=== PATIENT | female | born 1950 | race Caucasian/White ===

== ENCOUNTER → 2016-07-10 | Outpatient (REF) | payer BC | END | disposition home or self-care (01) | LOC: M SFHCWAGY 12:38 | PROVIDERS: ATTEND Nurse Practitioner Family | DX: Z12.4 Encounter for screening for malignant neoplasm of cervix (principal); N95.2 Postmenopausal atrophic vaginitis ==

== ENCOUNTER → 2017-08-23 | Outpatient (REF) | payer BC ==
[2017-08-28 14:13] LABS: HPV HYBRID CAPTURE II Negative (Negative)
== END ==
LOC: M SFHCWAGY 11:52
DX: Z01.419 Encounter for gynecological examination (general) (routine) without abnormal findings (principal); Z11.51 Encounter for screening for human papillomavirus (HPV)
CPT/HCPCS: G0123

== ENCOUNTER 2019-06-21 19:41 | Observation (INO) | payer BC, MEDICARE ==
[~2019-06-21] VITALS: Ht 162.6 cm; Wt 53.5 kg
[2019-06-21] MEDS ORDERED: COZA50TA PO (19:49)
[2019-06-21] MEDS ORDERED: LIPI10TA PO (19:49)
[2019-06-21] MEDS ORDERED: CLAR5TAB PO (19:49)
[2019-06-21] MEDS ORDERED: MEDR1TAB PO (19:50)
[2019-06-21] MEDS ORDERED: ACETAMINOPHEN 500 MG TAB PO ONE (20:15)
[2019-06-21] MEDS ORDERED: methylPREDNISolone INJ 125 MG/2 ML VIAL (J2930) IM ONE (20:15)
[2019-06-21] MEDS ORDERED: LIDOCAINE 5% (LIDODERM) PATCH TD ONE (20:15)
[2019-06-21] MEDS ORDERED: diazePAM 5 MG TAB PO ONE (20:15)
[2019-06-21 20:47] LABS: APPEARANCE, URINE HAZY (CLEAR); BACTERIA, URINE AUTO NEGATIVE (NEGATIVE); BILIRUBIN, URINE AUTO NEGATIVE (NEGATIVE); BLOOD, URINE BLOOD NEGATIVE (NEGATIVE); COLOR, URINE YELLOW (YELLOW); GLUCOSE, URINE (UA) AUTO NEGATIVE (NEGATIVE); KETONE, URINE AUTO NEGATIVE (NEGATIVE); LEUKOCYTE ESTERASE, URINE AUTO NEGATIVE (NEGATIVE); NITRITE, URINE AUTO NEGATIVE (NEGATIVE); PROTEIN, URINE AUTO NEGATIVE (NEGATIVE); RBC, URINE AUTO 0 /HPF (0-3); SPECIFIC GRAVITY URINE AUTO 1.016 (1.002-1.035); SQUAMOUS EPITHELIAL CELL UR AU 1 /HPF (0-6); UROBILINOGEN, URINE AUTO 0.2 mg/dL (0.0-2.0); WBC, URINE AUTO 0 /HPF (0-3)
[2019-06-21] MEDS ORDERED: **NOTE PATIENT COMMENT** MISC XX SCH (21:00)
[2019-06-21] MEDS ORDERED: KETAMINE HCL IV ONE (21:30)
[2019-06-21] MEDS ORDERED: NS IV ONE (21:30)
[2019-06-21] MEDS ORDERED: KETAMINE HCL 200 MG/20 ML VIAL IV ONE (21:45)
[2019-06-21 22:16] LABS: BASO # 0.1 10^3/uL (0.0-0.2); BASO % 0.6 % (0.0-1.0); EOS # 0.1 10^3/uL (0.0-0.5); EOS % 1.5 % (0.0-3.0); HEMATOCRIT 42.1 % (36.0-47.0); HEMOGLOBIN 13.4 g/dl (12.0-15.5); LYMPH # 1.2 10^3/uL (1.5-5.0); LYMPH % 14.2 % (24.0-44.0); MEAN CORPUSCULAR HEMOGLOBIN 28.3 pg (27.0-33.0); MEAN CORPUSCULAR HGB CONC 31.8 g/dl (32.0-36.5); MONO # 0.7 10^3/uL (0.0-0.8); MONO % 7.9 % (0.0-5.0); NEUTROPHILS # 6.4 10^3/uL (1.5-8.5); NEUTROPHILS % 75.2 % (36.0-66.0); PLATELET COUNT, AUTOMATED 216 10^3/uL (150-450); RED BLOOD COUNT 4.73 10^6/uL (4.00-5.40); WHITE BLOOD COUNT 8.5 10^3/uL (4.0-10.0)
[2019-06-21 22:40] LABS: BLOOD UREA NITROGEN 18 MG/DL (7-18); CALCIUM LEVEL 8.2 MG/DL (8.8-10.2); CARBON DIOXIDE LEVEL 28 MEQ/L (21-32); CHLORIDE LEVEL 108 MEQ/L (98-107); CREATININE FOR GFR 0.47 MG/DL (0.55-1.30); GLOMERULAR FILTRATION RATE > 60.0 (>45); GLUCOSE, FASTING 142 MG/DL (70-100); POTASSIUM SERUM 3.8 MEQ/L (3.5-5.1); SODIUM LEVEL 141 MEQ/L (136-145)
[2019-06-21] MEDS ORDERED: ASPI81TA21 PO (22:50)
[2019-06-21] MEDS ORDERED: FOLI1TAB11 PO (22:50)
[2019-06-21] MEDS ORDERED: METH4PACK PO (22:50)
[2019-06-21] MEDS ORDERED: PRIL20TA2 PO (22:50)
[2019-06-21] MEDS ORDERED: MOTR200T44 PO (22:50)
[2019-06-21] MEDS ORDERED: MULTCAP PO (22:50)
[2019-06-21] MEDS ORDERED: VITA500C24 PO (22:50)
[2019-06-21] MEDS ORDERED: GABAPENTIN 100 MG CAP PO ONE (23:15)
[2019-06-21] MEDS ORDERED: IBUPROFEN 800 MG TAB PO PRN (23:15)
[2019-06-22 00:45] VITALS: BP 132/75
--- NOTE | 2019-06-22 01:20 | HPEPDOC ---
General Date of Admission 06/21/2019 Date of Service: Jun 21, 2019 Attending Physician: HORACE MORRIS MD Chief Complaint The patient is a 69-year-old female admitted with a reason for visit of Hip Pain. Source: Patient Exam Limitations: No limitations Timing/Duration: 24 hours, Day(s), Getting worse Associated Symptoms: Other (RLE pain starting around hip into groin and shooting down thigh) History of Present Illness 69 yo W with hypertension, hyperlipidemia and recent history of L leg pain radiating to her groin and down her lateral thigh and diagnosed with L3 radicula r pain in ortho clinic 1 week ago and offered to have a prednisone injection which she declined and was placed on methylpred taper instead that initially yielded much relief but the pain returned over the last 3 days after starting the taper and today the pain was at its worst and 10/10 into the groin, burning and numbness down her lateral thigh, with no trauma history, fever, chills, redness or swelling. In the ED, initial vitals were, BP 209/94, HR 70, 98% on room air, afebrile RR 16. She was given lidocaine patch, tyleno 1g, valium 5mg, solumdrol 125 and ketamine x 2 doses and by the time I saw her she reported that her pain was now 3-4/10 with the only element still present being the pain into her groin. Workup was grossly unremarkable with a Hip XR that showed arthritis with no evidence of fracture or acute trauma, CBC, BMP and UA being normal. She is now being admitted for observation before she can be discharged home to follow up with orthopedics, likely for the prednisone injection that she is now agreeable to. Home Medications Scheduled Ascorbic Acid (Vitamin C) 500 Mg Capsule, 500 MG PO DAILY, (Reported) Aspirin (Aspir-Low) 81 Mg Tablet.dr, 81 MG PO DAILY, (Reported) Atorvastatin Calcium (Lipitor) 10 Mg Tablet, 10 MG PO DAILY, (Reported) Desloratadine (Clarinex) 5 Mg Tablet, 5 MG PO DAILY, (Reported) Folic Acid (Folic Acid) 1 Mg Tablet, 1 MG PO DAILY, (Reported) Losartan Potassium (Cozaar) 50 Mg Tablet, 50 MG PO DAILY, (Reported) Methylprednisolone (Methylprednisolone) 4 Mg Tab.ds.pk, 4 MG PO ASDIRECTED, (Reported) HAS ONE DAY LEFT Multivitamin (Multivitamins) 1 Each Capsule, 1 CAP PO DAILY, (Reported) Omeprazole Magnesium (Prilosec Otc) 20 Mg Tablet.dr, 20 MG PO DAILY, (Reported) Scheduled PRN Ibuprofen (Motrin Ib) 200 Mg Tablet, 800 MG PO Q6H PRN for PAIN, (Reported) Allergies Coded Allergies: No Known Allergies (Unverified , 06/21/19) Past Medical History Medical History HTN HLD L3 radiculopathy OA Surgical History none Family History Significant Family History: No pertinent family hx Social History * Smoker: Denies Alcohol: Denies Recent Travel/Sick Contacts: Reports: Recent travel Psychosocial History: No pertinent psych hx A-FIB/CHADSVASC A-FIB History Current/History of A-Fib/PAF?: No Current PO Anticoag Therapy: No Age/Risk Factor Scoring CHADSVASC: CHADSVASC Response (Comments) Value Age Risk Factor Age 65-74 years old 1 Gender Risk Factor Female 1 Hx of CHF No 0 Hx of HTN Yes 1 Hx of Stroke/TIA/or VTE No 0 Hx of Diabetes No 0 Hx of Vascular Disease No 0 Total 3 Treatment Treatment ordered: NONE Reason Anticoagulant not given: Not indicated/[id number] Review of Systems Constitutional: Denies: Chills, Fever, Night Sweats Eyes: Denies: Pain, Vision change ENT: Denies: Head Aches, Ear Pain, Dysphagia Skin: Denies: Rash, Lesions, Breakdown Pulmonary: Denies: Dyspnea, Cough Cardiovascular: Denies: Chest Pain, Palpitations, Orthopnea, Paroxysmal Noc. Dyspnea, Lt Headedness Gastrointestinal: Denies: Nausea, Vomiting, Abdominal Pain, Diarrhea Genitourinary: Denies: Dysuria, Frequency, Incontinence, Retention Hematologic: Denies: Bruising, Bleeding Excessively Endocrine: Denies: Polydipsia, Polyphagia, Polyuria, Heat Intolerance, Cold Intolerance, Other Endocrine Sx Musculoskeletal: Reports: Leg Pain (L posterior hip wrapping to the front into the groin and down her thigh, shooting, burning, numbness) Neurological: Denies: Weakness, Numbness, Change in speech, Confusion Psych: Reports: Mood Normal; Denies: Depression, Memory Issues Physical Examination General Exam: Positive: Alert, No Acute Distress Eye Exam: Positive: PERRLA, Conjunctiva & lids normal, EOMI; Negative: Sclera icteric Neck Exam: Positive: Supple; Negative: JVD, thyromegaly Chest Exam: Positive: Clear to auscultation, Normal air movement Heart Exam: Positive: Rate Normal, Regular Rhythm, Normal S1, Normal S2; Negative: Murmurs, Rubs Telemetry: Positive: No significant arrhythmia Abdomen Exam: Positive: Normal bowel sounds, Soft; Negative: Tenderness, Hepatospenomegaly Extremity Exam: Positive: Normal pulses; Negative: Clubbing, Cyanosis, Edema Skin Exam: Positive: Nl turgor and temperature; Negative: Breakdown, Lesion Neuro Exam: Positive: Normal Speech, Strength at 5/5 X4 ext, Sensation Intact (numbness along L2, L3 distribution of LLE. L leg with pain into groin with abduction at hip and +straight leg raise), Cranial Nerves 3-12 NL Psych Exam: Positive: Mental status NL, Mood NL, Oriented x 3 Vital Signs Vital Signs Date Time Temp Pulse Resp B/P (MAP) Pulse Ox O2 Delivery O2 Flow Rate FiO2 06/21/19 21:19 169/82 (111) 06/21/19 19:41 98.0 70 16 98 Room Air Laboratory Data Labs 24H Laboratory Tests 2 06/21/19 20:28: Urine Color YELLOW, Urine Appearance HAZY, Urine pH 5.0, Urine Specific [place] 1.016, Urine Protein NEGATIVE, Urine Glucose (Auto)(UA) NEGATIVE, Urine Ketones (Auto) NEGATIVE, Urine Blood NEGATIVE, Urine Nitrite NEGATIVE, Urine Bilirubin NEGATIVE, Urine Urobilinogen 0.2, Urine Leukocyte Esterase (Auto) NEGATIVE, Urine WBC (Auto) 0, Urine RBC (Auto) 0, Urine Hyaline Casts (Auto) 0, Urine Bacteria (Auto) NEGATIVE, Urine Squamous Epithelial Cells 1, Urine Sperm (Auto) 06/21/19 22:11: Immature Granulocyte % (Auto) 0.6, Neutrophils (%) (Auto) 75.2H, Lymphocytes (%) (Auto) 14.2L, Monocytes (%) (Auto) 7.9H, Eosinophils (%) (Auto) 1.5, Basophils (%) (Auto) 0.6, Neutrophils # (Auto) 6.4, Lymphocytes # (Auto) 1.2L, Monocytes # (Auto) 0.7, Eosinophils # (Auto) 0.1, Basophils # (Auto) 0.1, Nucleated Red Blood Cells % (auto) 0.0, Anion Gap 5L, Glomerular Filtration Rate > 60.0, Calcium Level 8.2L CBC/BMP Laboratory Tests 06/21/19 22:11 Assessment/Plan 69 yo W with hypertension, hyperlipidemia and recent history of L leg pain radiating to her groin and down her lateral thigh and diagnosed with L3 radicular pain in ortho clinic 1 week ago and offered to have a prednisone injection which she declined and was placed on methylpred taper instead that initially yielded much relief but the pain returned over the last 3 days after starting the taper with no trauma history, fever, chills, redness or swelling who is now admitted for radicular pain management with eventual plan to return to ortho clinic for prednisone injection. LLE radiculopathy: No recent trauma history, no fracture on XR, no redness, swelling, fever, chills, with FROM on exam with reproducible radicular pain. -s/p lidopatch, valium and ketamine in the ED -s/p methylpred 125mg IV in the ED, on omeprazole GI ppx -holding home methylpred taper -will give gabapentin 200 -PRN ibuprofen and tylenol -Pain well controlled currently, will monitor -PT, OT consult HTN: -continue home losartan HLD: -continue home lipitor GERD: -omeprazole continue home meds: -multivitamin, folate, Vit C, ASA81 DVT ppx: Lovenox Dispo: obs in [facility] for radicular pain management and PT, OT eval Plan / VTE VTE Prophylaxis Ordered?: Yes HORACE MORRIS MD Jun 22, 2019 00:32
[2019-06-22 06:00] VITALS: BP 129/74
--- NOTE | 2019-06-22 07:27 | REP ---
Lumbar spine five views: There are no comparisons. Vertebral body heights and alignment are normal. There is moderate degenerative disc disease at every lumbar level. There is no spondylolysis or spondylolisthesis. The pedicles are unremarkable. There is mild facet osteoarthritis throughout the lumbar spine. The sacroiliac articulations are unremarkable. Impression: Multilevel degenerative disc disease. Facet osteoarthritis. Electronically Signed by Omar Moses MD 06/22/2019 07:18 A
[2019-06-22] MEDS ORDERED: **NOTE PATIENT COMMENT** MISC XX SCH (08:00)
[2019-06-22 08:13] VITALS: BP 126/76
[2019-06-22] MEDS ORDERED: EXCEDRIN MIGRAINE TABLET PO PRN (08:45)
[2019-06-22] MEDS ORDERED: ATORVASTATIN 10 MG TAB PO SCH (09:00)
[2019-06-22] MEDS ORDERED: ASPIRIN 81 MG ENTERIC TAB PO SCH (09:00)
[2019-06-22] MEDS ORDERED: FOLIC ACID 1 MG TAB PO SCH (09:00)
[2019-06-22] MEDS ORDERED: ASCORBIC ACID 500 MG TAB PO SCH (09:00)
[2019-06-22] MEDS ORDERED: OMEPRAZOLE 20 MG CAP PO SCH (09:00)
[2019-06-22] MEDS ORDERED: LOSARTAN 50 MG TAB PO SCH (09:00)
[2019-06-22] MEDS ORDERED: ENOXAPARIN 40 MG/0.4 ML SYRINGE (J1650) SC SCH (09:00)
[2019-06-22] MEDS ORDERED: MULTIVITAMINS/MINERALS THERAP 1 TAB PO SCH (09:00)
--- NOTE | 2019-06-22 16:53 | DS.PDOC ---
Discharge Summary General Date of Admission Jun 21, 2019 at 19:42 Date of Discharge 06/22/2019 Discharge Summary DISCHARGE DIAGNOSIS: Left lower leg radiculopathy SECONDARY DIAGNOSIS: 1. Hypertension 2. Hyperlipidemia 3. GERD PROCEDURES PERFORMED DURING STAY: None. CONSULTANTS: None HOSPITAL COURSE: While the patient was admitted she was stable on the floors. She said her pain was completely resolved by the time she got to the floor. She received a total of 1 g of Tylenol, Solu-Medrol 125 mg, ketamine 2 doses as well as had a lidocaine patch placed. She was evaluated by PT states that the patient was stable to be discharged home. Recommended the patient that she should follow-up with orthopedic surgery within a week as well as her primary care provider, she was agreeable to this plan. DISCHARGE MEDICATIONS: Please see below. ALLERGIES: Please see below. SUBJECTIVE: Patient seen and examined this morning. She states that her pain is completely resolved since shes been admitted. She has no complaints this morning except a headache and was like to go home if possible. She denies chest pain, shortness, breath, nausea, vomiting, fevers, or chills OBJECTIVE: PHYSICAL EXAMINATION: VITAL SIGNS: Please see below. GENERAL: Pleasant 69 year old sitting up in bed awake alert oriented speaking in complete sentences no acute distress HEENT: Atraumatic, normocephalic, moist mucous membranes, no JVD CARDIOVASCULAR: S1 S2 regular no additional heart sounds appreciated. RESPIRATORY: Clear to auscultation bilaterally. ABDOMINAL: Bowel sounds present abdomen soft and nontender EXTREMITIES: No clubbing, cyanosis, edema. Negative logroll test. No tenderness to palpation of the hip joints or back. No reproducible radiculopathy pain on exam today NEUROLOGICAL: no gross focal deficits appreciated PSYCHOLOGICAL: Appropriate LABORATORY DATA, MICROBIOLOGY: Please see below. IMAGING STUDIES: 06/21/2019 Lumbar spine x-ray Multilevel degenerative disc disease. Facet osteoarthritis. DISPOSITION: Home DISCHARGE CONDITION: Improved and Stable. PROGNOSIS: Fair FOLLOW UP: 1. Follow-up with PCP in 7-10 days. 2. Follow-up with orthopedics in 7-10 days. 3. If symptoms return or worsen please call your PCP or return to the ER. ACTIVITY: As prior to admission DIET: As prior to admission TIME SPENT ON DISCHARGE: 35 minutes Attending attestation: I have independently seen and examined the patient. Vital Signs/I&Os Vital Signs Date Time Temp Pulse Resp B/P (MAP) Pulse Ox O2 Delivery O2 Flow Rate FiO2 06/22/19 08:13 126/76 06/22/19 06:00 98.0 63 18 94 Room Air I&O- Last 24 Hours up to 6 AM 06/22/19 06:00 Intake Total 240 ml Output Total 550 ml Balance -310 ml Laboratory Data Labs 24H Laboratory Tests 2 06/21/19 20:28: Urine Color YELLOW, Urine Appearance HAZY, Urine pH 5.0, Urine Specific [place] 1.016, Urine Protein NEGATIVE, Urine Glucose (Auto)(UA) NEGATIVE, Urine Ketones (Auto) NEGATIVE, Urine Blood NEGATIVE, Urine Nitrite NEGATIVE, Urine Bilirubin NEGATIVE, Urine Urobilinogen 0.2, Urine Leukocyte Esterase (Auto) NEGATIVE, Urine WBC (Auto) 0, Urine RBC (Auto) 0, Urine Hyaline Casts (Auto) 0, Urine Bacteria (Auto) NEGATIVE, Urine Squamous Epithelial Cells 1, Urine Sperm (Auto) 06/21/19 22:11: Immature Granulocyte % (Auto) 0.6, Neutrophils (%) (Auto) 75.2H, Lymphocytes (%) (Auto) 14.2L, Monocytes (%) (Auto) 7.9H, Eosinophils (%) (Auto) 1.5, Basophils (%) (Auto) 0.6, Neutrophils # (Auto) 6.4, Lymphocytes # (Auto) 1.2L, Monocytes # (Auto) 0.7, Eosinophils # (Auto) 0.1, Basophils # (Auto) 0.1, Nucleated Red Bloo d Cells % (auto) 0.0, Anion Gap 5L, Glomerular Filtration Rate > 60.0, Calcium Level 8.2L CBC/BMP Laboratory Tests 06/21/19 22:11 Discharge Medications Scheduled Ascorbic Acid (Vitamin C) 500 Mg Capsule, 500 MG PO DAILY, (Reported) Aspirin (Aspir-Low) 81 Mg Tablet.dr, 81 MG PO DAILY, (Reported) Atorvastatin Calcium (Lipitor) 10 Mg Tablet, 10 MG PO DAILY, (Reported) Desloratadine (Clarinex) 5 Mg Tablet, 5 MG PO DAILY, (Reported) Folic Acid (Folic Acid) 1 Mg Tablet, 1 MG PO DAILY, (Reported) Losartan Potassium (Cozaar) 50 Mg Tablet, 50 MG PO DAILY, (Reported) Multivitamin (Multivitamins) 1 Each Capsule, 1 CAP PO DAILY, (Reported) Omeprazole Magnesium (Prilosec Otc) 20 Mg Tablet.dr, 20 MG PO DAILY, (Reported) Scheduled PRN Ibuprofen (Motrin Ib) 200 Mg Tablet, 800 MG PO Q6H PRN for PAIN, (Reported) Allergies Coded Allergies: No Known Allergies (Unverified , 06/21/19) CARLINE LUNA DO Jun 22, 2019 16:53 VINCENT HAWK MD Jul 13, 2019 18:39
== END 2019-06-22 11:25 | disposition home or self-care (01) ==
LOC: M ED 19:41 → M ED INP 19:42 → UNDOADMOB 23:10 → M ED INP 23:10 → ENRESERV 23:33 → M MS5PR 06-22 00:45
PROVIDERS: ADMIT Internal Medicine; ATTEND Internal Medicine
DX: M54.16 Radiculopathy, lumbar region (principal); M46.96 Unspecified inflammatory spondylopathy, lumbar region; M51.9 Unspecified thoracic, thoracolumbar and lumbosacral intervertebral disc disorder; R51 Headache; I10 Essential (primary) hypertension; E78.5 Hyperlipidemia, unspecified; K21.9 Gastro-esophageal reflux disease without esophagitis; M19.90 Unspecified osteoarthritis, unspecified site; Z79.899 Other long term (current) drug therapy; Z79.82 Long term (current) use of aspirin; Z79.52 Long term (current) use of systemic steroids
CPT/HCPCS: 72110; 80048; 81001; 85025; 96372; 96374; 97161; 97165; 99284; G0378; J1650; J2930

== ENCOUNTER → 2019-07-04 | Outpatient (CLI) | payer MEDICARE, BC ==
[~2019-07-04] MED LIST: ASPI81TA21 PO; CLAR5TAB PO; COZA50TA PO; FOLI1TAB11 PO; LIPI10TA PO; MEDR1TAB PO; METH4PACK PO; MOTR200T44 PO; MULTCAP PO; PRIL20TA2 PO; VITA500C24 PO
--- NOTE | 2019-07-05 20:58 | REPVR ---
PROCEDURE INFORMATION: Exam: MR Lumbar Spine Without Contrast. Exam date and time: 07/04/2019 3:16 PM Age: 69 years old Clinical indication: Pain; Lumbago with sciatica; Right; Additional info: Low back pain TECHNIQUE: Imaging protocol: Multiplanar magnetic resonance images of the lumbar spine without intravenous contrast. COMPARISON: CR Spine. Lumbosacral, complete 06/21/2019 8:39 PM FINDINGS: Vertebrae: . T1 weighted images demonstrate mottled decreased signal throughout the vertebrae, findings which can be seen in association with chronic anemia or other myeloproliferative abnormality. This should be correlated with clinical evaluation. Unremarkable. Normal alignment. Spinal cord: Normal signal. No cord compression. L1-L2: No significant disc disease. No significant spinal canal stenosis. No neural foraminal stenosis. L2-L3: No significant disc disease. No significant spinal canal stenosis. No neural foraminal stenosis. L3-L4: There is a mild degenerative central spinal stenosis at L3-L4 secondary to diffuse annular bulging, thickened ligamentum flavum with mild facet joint arthropathy. No significant foraminal narrowing. No lateral recess stenosis. L4-L5: There is a moderate degenerative central spinal stenosis at L4-L5 secondary to diffuse annular bulging, thickened ligamentum flavum with facet joint arthropathy. Moderate foraminal narrowing on the left. No lateral recess stenosis. L5-S1: Diffusely bulging annulus L5-S1 with loss of disc height. No central spinal stenosis. Bilateral facet joint arthropathy. Moderate foraminal narrowing on the left. No lateral recess stenosis. Soft tissues: Unremarkable. IMPRESSION: 1. Degenerative spondylosis with mild degenerative central spinal stenosis L3-L4, moderate degenerative central spinal stenosis at L4-L5. Diffusely bulging annulus at L5-S1 without neural compromise. 2. Possible anemia or other myeloproliferative disorder. Clinical correlation needed. Electronically signed by: Jose Paul On 07/05/2019 20:57:42 PM
== END ==
LOC: M RAD 14:16
PROVIDERS: ATTEND Orthopaedic Surgery
DX: M54.5 Low back pain (principal)

== ENCOUNTER → 2022-01-12 | Outpatient (REF) | payer MEDICARE, BC ==
[~2022-01-12] MED LIST changes: -CLAR5TAB PO; +DESL5TAB28 PO
== END ==
LOC: M LAB REF 19:27
PROVIDERS: ATTEND Internal Medicine
DX: R30.0 Dysuria (principal)

== ENCOUNTER → 2022-03-15 | Outpatient (CLI) | payer MEDICARE, BC | LOC: M WHC 09:01 | PROVIDERS: ATTEND Nurse Practitioner Family | DX: M81.0 Age-related osteoporosis without current pathological fracture (principal) ==

== ENCOUNTER → 2022-05-07 | Outpatient (CLI) | payer MEDICARE, BC | LOC: M RAD 07:32 | DX: R10.11 Right upper quadrant pain (principal); W10.9XXA Fall (on) (from) unspecified stairs and steps, initial encounter; N28.1 Cyst of kidney, acquired ==

== ENCOUNTER 2023-11-10 21:07 | Emergency (ER) | payer MEDICARE, BC ==
[~2023-11-10] VITALS: Ht 162.6 cm; Wt 65.1 kg
[~2023-11-10 21:07] MED LIST changes: -COZA50TA PO; +LOSA-528 PO
[2023-11-11] MEDS: RABIES IMMUNE GLOBULIN 1500 INTERNATIONAL UNIT/5ML VIAL IM.IMMUN ONE (06:22)
[2023-11-11] MEDS: RABIES VACCINE HUMAN 2.5 INTERNATIONAL UNITS/ML VIAL IM.IMMUN ONE (06:23)
[2023-11-11 06:52] VITALS: BP 180/70; TEMP 97.5; O2SAT 99
== END 2023-11-11 07:10 | disposition home or self-care (01) ==
LOC: M ED 21:07
DX: Z20.3 Contact with and (suspected) exposure to rabies (principal); Z29.14 Encounter for prophylactic rabies immune globulin; Z23 Encounter for immunization; F10.10 Alcohol abuse, uncomplicated; Z79.1 Long term (current) use of non-steroidal anti-inflammatories (NSAID); Z79.810 Long term (current) use of selective estrogen receptor modulators (SERMs); Z79.899 Other long term (current) drug therapy

== ENCOUNTER 2023-11-14 06:46 | Emergency (ER) | payer MEDICARE, BC, OTHER ==
[~2023-11-14] VITALS: Ht 165.1 cm; Wt 64.8 kg
[2023-11-14 06:46] VITALS: BP 161/78; TEMP 98.6; O2SAT 97
[2023-11-14] MEDS: RABIES VACCINE HUMAN 2.5 INTERNATIONAL UNITS/ML VIAL IM ONE (07:49)
== END 2023-11-14 07:59 | disposition home or self-care (01) ==
LOC: M ED 06:46
DX: Z29.14 Encounter for prophylactic rabies immune globulin (principal); Z23 Encounter for immunization; Z79.1 Long term (current) use of non-steroidal anti-inflammatories (NSAID); Z79.810 Long term (current) use of selective estrogen receptor modulators (SERMs); Z79.899 Other long term (current) drug therapy

== ENCOUNTER 2023-11-18 06:56 | Emergency (ER) | payer MEDICARE, BC, OTHER ==
[~2023-11-18] VITALS: Ht 162.6 cm; Wt 65.3 kg
[2023-11-18 06:58] VITALS: TEMP 97; O2SAT 100
[2023-11-18 07:49] VITALS: BP 140/70
[2023-11-18] MEDS: RABIES VACCINE HUMAN 2.5 INTERNATIONAL UNITS/ML VIAL IM ONE (09:12)
== END 2023-11-18 09:14 | disposition home or self-care (01) ==
LOC: M ED 06:56
DX: Z29.14 Encounter for prophylactic rabies immune globulin (principal); Z23 Encounter for immunization; Z79.1 Long term (current) use of non-steroidal anti-inflammatories (NSAID); Z79.899 Other long term (current) drug therapy

== ENCOUNTER 2023-11-25 06:54 | Emergency (ER) | payer MEDICARE, BC ==
[~2023-11-25] VITALS: Ht 162.6 cm; Wt 65.2 kg
[2023-11-25 06:55] VITALS: BP 153/68; TEMP 97.6; O2SAT 97
[2023-11-25] MEDS: RABIES VACCINE HUMAN 2.5 INTERNATIONAL UNITS/ML VIAL IM.IMMUN ONE (07:20)
== END 2023-11-25 07:35 | disposition home or self-care (01) ==
LOC: M ED 06:54
DX: Z29.14 Encounter for prophylactic rabies immune globulin (principal); Z23 Encounter for immunization; I10 Essential (primary) hypertension; E78.5 Hyperlipidemia, unspecified; Z79.899 Other long term (current) drug therapy; Z79.1 Long term (current) use of non-steroidal anti-inflammatories (NSAID)

== ENCOUNTER → 2024-09-24 | Outpatient (CLI) | payer MEDICARE, BC ==
[~2024-09-24] MED LIST changes: -DESL5TAB28 PO; +DESL5TAB30 PO
== END ==
LOC: M WHC 08:57
PROVIDERS: ATTEND Physician Assistant Medical
DX: M81.0 Age-related osteoporosis without current pathological fracture (principal)